=== PATIENT | female | born 1985 | race Caucasian/White ===

== ENCOUNTER → 2019-05-04 13:08 | Outpatient (CLI) | payer OTHER, SELFPAY ==
--- NOTE | ~2019-05-04 | US_ITS ---
EXAMINATION:US venous doppler LE RT INDICATION:Right calf pain TECHNIQUE: Multiple grayscale, color flow and Doppler images of the right lower extremity deep venous systems were obtained and reviewed. COMPARISON:No prior studies for comparison. FINDINGS: The common femoral, superficial femoral and popliteal veins demonstrate normal respiratory variation, augmentation and compressibility. Color flow is also seen within the posterior tibial, pe roneal, greater saphenous and profunda veins. IMPRESSION: 1: No lower extremity deep venous thrombosis. Reviewed, dictated and finalized at location B. [employer]
== END ==
PROVIDERS: PCP Family Medicine; Visit Provider Family Medicine
DX: M79.661 Pain in right lower leg (principal)
CPT/HCPCS: 93971

== ENCOUNTER 2019-05-10 15:12 | Outpatient (CLI) | payer OTHER, SELFPAY ==
--- NOTE | ~2019-05-10 | CT_ITS ---
EXAMINATION: CT abdomen pelvis w con DATE: 05/10/2019 16:01 INDICATION: Abnormal iron profile. TECHNIQUE: Computed tomography (CT) of the abdomen and pelvis was performed with 100 cc Omnipaque 350 intravenous contrast. The dose-length product was 241.60 mGy-cm. Automated exposure control and iter ative reconstruction technique were employed. COMPARISON: None. FINDINGS: Lung bases are unremarkable. There are breast implants. Heart size is normal. Small subcentimeter hypodensities of the liver, most likely benign cysts or hemangiomas. The spleen c ontains calcified granulomas. The pancreas, adrenal glands and kidneys are unremarkable. Bowel patter n is nonobstructive. There is a 1.8 cm corpus luteal cyst of the left ovary. Small amount of free flu id in the pelvis. No free air. Nonobstructive bowel gas pattern. Uterus is unremarkable. No significa nt bone or joint abnormality. IMPRESSION: 1. No acute abdominal abnormality. 2: Left ovarian cyst measuring 1.8 cm. No significant vascular abnormality. No lymphadenopathy. Reviewed, dictated and finalized at location A.
== END 2019-05-10 15:13 | disposition home or self-care (01) ==
PROVIDERS: PCP Nurse Practitioner Adult Health; Visit Provider Nurse Practitioner Adult Health
DX: R79.0 Abnormal level of blood mineral (principal); N83.202 Unspecified ovarian cyst, left side
CPT/HCPCS: 74177; Q9967

== ENCOUNTER 2019-07-12 15:52 | Outpatient (CLI) | payer OTHER, SELFPAY ==
[2019-07-12 16:14] LABS: Basophils Percent Auto 0.5 % (0.2-1.2); Eosinophils Absolute Auto 0.2 K/mm3 (0-0.3); Eosinophils Percent Auto 2.4 % (0-4.4); Hematocrit 39.6 % (37.0-47.0); Hemoglobin 12.7 g/dL (12.0-15.0); Immature Granulocyte Absolute 0.02 K/mm3 (0.00-0.031); Immature Granulocyte Percent A 0.3 % (0-0.5); Lymphocytes Absolute Auto 1.23 K/mm3 (0.9-3.2); Lymphocytes Percent Auto 18.5 % (18.3-44.2); Mean Corpuscular HGB Conc 32.1 g/dl (32-36); Mean Corpuscular Hemoglobin 30.7 pg (26-34); Mean Corpuscular Volume 95.7 fl (80-100); Mean Platelet Volume 11.1 fl (7.4-10.4); Monocytes Absolute Auto 0.6 K/mm3 (0.1-0.6); Monocytes Percent Auto 8.3 % (2.6-8.5); Neutrophils Absolute Auto 4.7 K/mm3 (1.3-6.7); Platelet Count Result 152 k/mm3 (150-375); Red Blood Count 4.14 M/mm3 (4.2-5.4); Red Cell Distribution Width 13.2 % (11.5-14.5); White Blood Count 6.6 K/mm3 (4.5-10.0)
[2019-07-12 16:54] LABS: Iron 112 ug/dL (37-170)
[2019-07-12 16:57] LABS: Alanine Aminotransferase 27 U/L (4-35); Albumin Level 4.8 g/dL (3.5-5.1); Alkaline Phosphatase 39 U/L (38-126); Aspartate Amino Transferase 34 U/L (14-36); Bilirubin,Total 0.8 mg/dL (0.2-1.3); Blood Urea Nitrogen 17 mg/dL (7-17); Calcium 9.7 mg/dL (8.4-10.2); Carbon Dioxide 29 mmol/L (22-30); Chloride 102 mmol/L (98-107); Estimated Glomerular Filt Rate > 60; Glucose 83 mg/dL (65-105); Potassium 4.4 mmol/L (3.4-5.0); Sodium 135 mmol/L (137-145)
[2019-07-12 17:04] LABS: Percent Iron Saturation 46 % (20-50)
== END 2019-07-12 15:53 | disposition home or self-care (01) ==
PROVIDERS: PCP Nurse Practitioner Adult Health; Visit Provider Internal Medicine Hematology & Oncology
DX: E83.19 Other disorders of iron metabolism (principal)
CPT/HCPCS: 36415; 80053; 81256; 82728; 83540; 83550; 85025

== ENCOUNTER 2021-03-16 11:19 | Outpatient (CLI) | payer OTHER, SELFPAY ==
[2021-03-16 12:46] LABS: HIV 1/2 Ab P24 Ag Result Negative (Negative)
[2021-03-16 13:42] LABS: Hepatitis B Surface Antigen Negative (Negative)
[2021-03-17 07:28] LABS: Rapid Plasma Reagin Non-Reactive (NonReactive)
[2021-03-20 12:09] LABS: HSV 1 IgM Screen Positive (Negative); HSV 2 IgM Screen Negative (Negative)
[2021-03-20 12:41] LABS: HSV 1 IgM Titer 1:20 (<1:20)
== END 2021-03-16 11:20 | disposition home or self-care (01) ==
LOC: ANHLAB 11:22
PROVIDERS: PCP Nurse Practitioner Adult Health; Visit Provider Obstetrics & Gynecology
DX: Z20.2 Contact with and (suspected) exposure to infections with a predominantly sexual mode of transmission (principal)
CPT/HCPCS: 36415; 86592; 86695; 86696; 86703; 87340; G0432

== ENCOUNTER 2022-04-09 08:46 | Outpatient (CLI) | payer OTHER, SELFPAY ==
[2022-04-09 11:42] LABS: Kit Draw Collected
== END 2022-04-09 08:47 | disposition home or self-care (01) ==
LOC: ANHGOSHLAB 08:48
PROVIDERS: PCP Internal Medicine; Visit Provider Clinical Nurse Specialist
DX: D50.9 Iron deficiency anemia, unspecified (principal); E28.2 Polycystic ovarian syndrome; E55.9 Vitamin D deficiency, unspecified; R79.89 Other specified abnormal findings of blood chemistry; Z13.220 Encounter for screening for lipoid disorders; Z13.228 Encounter for screening for other metabolic disorders
CPT/HCPCS: 36415

== ENCOUNTER 2022-04-30 09:34 | Outpatient (CLI) | payer OTHER, SELFPAY ==
[2022-04-30 12:02] LABS: Kit Draw Collected
== END 2022-04-30 09:35 | disposition home or self-care (01) ==
LOC: ANHGOSHLAB 09:36
PROVIDERS: PCP Internal Medicine; Visit Provider Clinical Nurse Specialist
DX: D69.6 Thrombocytopenia, unspecified (principal); R79.0 Abnormal level of blood mineral
CPT/HCPCS: 36415

== ENCOUNTER 2022-07-09 01:01 | Day surgery (SDC) | payer OTHER, SELFPAY ==
[2022-07-07 08:46] VITALS: BMI 20.3
--- NOTE | 2022-07-07 08:54 | PC.NURSE ---
Report to the Outpatient Waiting Room, entrance under the green pavilion located off [facility], at time 1000 on date 07/09/22. Planned Procedure Time: 1200. Time changes happen often and if your time is changed the preop area will call you the afternoon before. - You and your visitor will be asked to self-screen and do not enter if you have any COVID symptoms. - A mask is optional within the hospital at this time. Patients may have clear liquids (water, carbonated beverages, clear teas, apple juice) until 3 hours prior to surgery with a maximum of 20 ounces. - No food from midnight until time of surgery Take the following medications with a SIP of water the morning of surgery: VALACYCLOVIR IF NEEDED DO NOT STOP ANY OF YOUR OTHER PRESCRIPTION MEDICATIONS PRIOR TO SURGERY EXCEPT THE FOLLOWING Medications to discontinue per physician: VITAMINS/SUPPLEMENTS Date to take last dose: NO MORE UNTIL AFTER SURGERY Please no make-up, nail greenlandic, hairspray, perfume, deodorant, or body powder the day of surgery. No jewelry (including any body piercings) or valuables the day of surgery, leave them at home. Please take a shower or bath the night before, or the morning of, surgery with an antibacterial soap. Wear comfortable, loose fitting clothing. - Jewelry must be removed prior to entering the operating room. Rings and piercings that are not removed may be cut off. - The hospital will not accept responsibility for valuables. - Please leave all valuables, including medications, at home the day of surgery. If you are going home after surgery, a licensed courier driver must drive you home. - NO public transportation without another adult if you receive anesthesia. - We recommend that an adult stay with you for 24 hours following discharge. - We also recommend that you do not drive, make important decision, drink alcoholic beverages, or take any drugs that were not prescribed by your health care provider for at least 24 hours after your discharge time. Follow any additional instructions given to you from your surgeon. If you or anyone in your household have experienced Covid symptoms in the past week, please notify your surgeon or the nurse liaison at the phone number below for possible testing. Telephone instructions given to PT - DENIA MAZARIEGOS and asked if any additional questions and then verbalized understanding. Patient advised to call surgeon office or pre surgery nurse liaison [phone] if any additional questions.
--- NOTE | 2022-07-09 08:02 | PM.IMHP ---
H&P: HPI History of Present Illness Date/Time: 07/09/22 08:02 Chief Complaint: abnormal uterine bleeding Narrative: 36-year-old female who presents for hysteroscopy, D&C, endometrial ablation.? Patient complained of abnormal uterine bleeding.? Patient has tried hormonal contraceptives in the past without improvement in symptoms.? Patient continues to have bothersome bleeding.? Patient states she has had on and off menstrual like bleeding since June 09.? Patient had a pelvic ultrasound which was negative for structural causes of bleeding.? Patient would like to proceed with endometrial ablation.? Review of Systems Cardiovascular: Cardiovascular: Denies chest pain, Denies leg edema, Denies palpitations, Denies dyspnea and Denies dyspnea on exertion Respiratory: Respiratory: Denies cough, Denies dyspnea and Denies dyspnea on exertion Gastrointestinal: Gastrointestinal: Denies abdominal pain, Denies constipation, Denies diarrhea, Denies nausea and Denies vomiting Genitourinary: Genitourinary: Denies hematuria, Denies urinary frequency, Denies dysuria, Denies pelvic pain, Denies urinary incontinence and Denies vaginal discharge Neurologic: Reports system reviewed and no additional complaints, except as documented Psychiatric: Psychiatric: Reports no additional psychiatric complaints Endocrine: Endocrine: Denies palpitations PMFSH Past Medical History Medical History Breast implant status 2020, illness HSV-1 (herpes simplex virus 1) infection PCOS (polycystic ovarian syndrome) Surgical History Surgical History H/O lateral meniscus repair of right knee History of breast augmentation 04/08/17 History of breast surgery 07/02/20, breast implant removal Status post creation of urethral sling by suprapubic approach Family History Family History Grandparent Breast cancer Social History Social History Smoking status: Never smoker Alcohol intake: current Alcohol use details: 2 BOTTLES OF WINE/MONTH Substance use: never Substance use type: does not use Lack of Transportation: No Lack of Food: Never True Current Housing: I Have Housing Concerned About Future Housing: No Difficulty Paying Gas/Electric Bills: No Difficulty Paying for Meds: No Currently Unemployed: No Education: Bachelor's Degree Difficulty w/ Childcare or Family Care: No Living arrangements: with family Additional living arrangements comments: [employer] Occupation/Education: occupation Additional occupation/education comments: RN Gender identity (if verbalized by the patient): Female Sexual Orientation (if Verbalized by the Patient): Lesbian, Shearer, or Homosexual Spiritual care concerns: No Meds Home Medications and Allergies Home Medications Medication Instructions Recorded Confirmed Type multivit with 1 tablet PO DAILY 01/09/20 07/07/22 History pyuazrho-blev-CI-lutein 8 mg iron-400 mcg-300 mcg tablet (Centrum Silver Women) lactobacillus combination no.4 3 3,000 mmu cells PO DAILY 12/12/20 07/07/22 History billion cell capsule (Probiotic) albuterol sulfate 90 mcg/actuation 1 inh inhalation Q4H PRN shortness 04/08/22 07/07/22 Rx aerosol inhaler of breath or wheezing #8.5 grams valacyclovir 1 gram tablet 2,000 mg PO Q12H PRN cold sores 1 04/08/22 07/07/22 Rx day #4 tabs lysine 1,000 mg tablet 1,000 mg PO DAILY 07/07/22 07/07/22 History Allergies Allergy/AdvReac Type Severity Reaction Status Date / Time Sulfa (Sulfonamide Allergy Severe Anaphylaxis Verified 07/07/22 08:45 Antibiotics) Exam Const: General: no acute distress Eyes: EOM: EOMs intact bilaterally Neck: Neck: supple Thyroid: thyroid normal Chest: Breast/axilla inspection: no
--- NOTE | 2022-07-09 08:04 | WPDHPUPDATE1 ---
History and Physical Update Update Date/Time: 07/09/22 08:04 History and Physical has been reviewed, including an updated exam of the patient. There are NO changes in the patient's condition. Risks, benefits, and alternatives have been discussed and questions answered. Patient agrees to proceed with procedure.
[2022-07-09] MEDS: ACETAMINOPHEN 500 MG TABLET 1000 MG PO (10:09)
[2022-07-09] MEDS: LACTATED RINGERS 1,000 ML 30 ML IV CONT (10:30)
[2022-07-09 10:35] VITALS: BP 115/77; PULSE 62; RESP 16; TEMP 36.9; O2SAT 100
[2022-07-09 10:39] LABS: Hematocrit 38.5 % (37.0-47.0)
--- NOTE | 2022-07-09 10:44 | WPDANESEPPF ---
Anes - Initial Pre Proc Eval Procedure: Operation Date: 07/09/22 12:00 Proposed Procedures p Hysteroscopy Dilation and Curettage with Zo Endometrial Ablation - Brian Blanca MD Date/Time: 07/09/22 10:44 Surgeon: Brian Blanca MD Pre Op Diagnosis: Abnormal Uterine Bleeding Patient Data Age: 36 Gender: F Height: 1.7 m Weight: 60.8 kg Last Vital Signs Temp 36.9 C 07/09/22 10:35 Pulse 62 07/09/22 10:35 Resp 16 07/09/22 10:35 BP 115/77 07/09/22 10:35 Pulse Ox 100 07/09/22 10:35 O2 Del Method Room Air 07/09/22 10:35 Allergies Allergy/AdvReac Type Severity Reaction Status Date / Time Sulfa (Sulfonamide Allergy Severe Anaphylaxis Verified 07/09/22 10:08 Antibiotics) Home Medications Medication Instructions Recorded Confirmed Type multivit with 1 tablet PO DAILY 01/09/20 07/07/22 History vzkjnqqh-ttpq-MD-lutein 8 mg iron-400 mcg-300 mcg tablet (Centrum Silver Women) lactobacillus combination no.4 3 3,000 mmu cells PO DAILY 12/12/20 07/07/22 History billion cell capsule (Probiotic) albuterol sulfate 90 mcg/actuation 1 inh inhalation Q4H PRN shortness 04/08/22 07/07/22 Rx aerosol inhaler of breath or wheezing #8.5 grams valacyclovir 1 gram tablet 2,000 mg PO Q12H PRN cold sores 1 04/08/22 07/07/22 Rx day #4 tabs lysine 1,000 mg tablet 1,000 mg PO DAILY 07/07/22 07/07/22 History Laboratory Tests 07/09/22 10:32 Hgb Pending Hct Pending Patient hx anesthesia problems: none Family hx anesthesia problems: none Results Review: All pre-operative results and documents have been reviewed as part of the pre-operative evaluation. [facility] Past Medical History Medical History Breast implant status 2020, illness HSV-1 (herpes simplex virus 1) infection PCOS (polycystic ovarian syndrome) Surgical History Surgical History H/O lateral meniscus repair of right knee History of breast augmentation 04/08/17 History of breast surgery 07/02/20, breast implant removal Status post creation of urethral sling by suprapubic approach Family History Family History Grandparent Breast cancer Social History Social History Smoking status: Never smoker Alcohol intake: current Alcohol use details: 2 BOTTLES OF WINE/MONTH Substance use: never Substance use type: does not use Lack of Transportation: No Lack of Food: Never True Current Housing: I Have Housing Concerned About Future Housing: No Difficulty Paying Gas/Electric Bills: No Difficulty Paying for Meds: No Currently Unemployed: No Education: Bachelor's Degree Difficulty w/ Childcare or Family Care: No Living arrangements: with family Additional living arrangements comments: [employer] Occupation/Education: occupation Additional occupation/education comments: RN Gender identity (if verbalized by the patient): Female Sexual Orientation (if Verbalized by the Patient): Lesbian, Shearer, or Homosexual Spiritual care concerns: No Anes - Eval Final PreProcedure Day of Procedure 07/09/22 10:44 Patient weight: normal Heart: regular rate and rhythm Lungs: clear to auscultation Airway: Mallampati scale class II Neurological: alert and oriented Last oral intake: >/= 8 hours ASA classification: II Emergent: no Anesthetic plan: proceed Anesthesia type and monitoring: general GIVS and standard monitoring Results Review: All pre-operative results and documents have been reviewed as part of the pre-operative evaluation. Informed Consent: The patient's anesthetic plan and its attendant risks and benefits were discussed with the patient/family/POA. Questions were solicited and answers provided to the satisfaction of the pat
[2022-07-09] MEDS: SCOPOLAMINE 1.5 MG PATCH TRANSDERM (10:54)
[2022-07-09] MEDS: LIDOCAINE HCL 1% LOCAL INJ 20 ML VIAL 10 ML INFILTRATE (12:08)
[2022-07-09 12:16] VITALS: BP 103/87; PULSE 58; RESP 16; O2SAT 100
--- NOTE | 2022-07-09 12:18 | W.PM.PROC2 ---
Procedure Note - Detailed Date of Procedure 07/09/22 Pre-op Diagnosis Abnormal Uterine Bleeding Post-op Diagnosis Same Procedure Performed paracervical block hysteroscopy dilation & curettage endometrial ablation Surgeon Brian Blanca MD Anesthesia General Indications abnormal uterine bleeding Findings normal appearing intrauterine cavity. Normal tubal ostia bilaterally Description of Procedure Marley Montanez presents for hysteroscopy, D&C, endometrial ablation for AUB. She was counseled as to the indications, risks, benefits, and alternatives to surgery, with the risks including bleeding, infection, damage to surrounding organs, VTE, and complications of anesthesia. Her verbal and written consent was obtained. PROCEDURE: The patient was taken to the OR and general anesthesia induced. She was prepped and draped in Salvador stirrups with support of the back and bilateral lower extremities. I/O catheterization performed of the bladder. The above findings were noted. Infiltration with 1% lidocaine at the 3 and 9 o'clock cervical positions was performed. A single tooth tenaculum was placed on the anterior lip of the cervix. The uterus sounded to 8 cm. The cervix was dilated with sequential Linda dilators. Hysteroscopy, using a normal saline medium, was performed and showed the above findings. Sharp uterine curettage was then performed and tissue placed on Telfa. The Zo device was set to a depth of 5.5 cm. The device was inserted into the uterus and deployed. Good fit was reassured by the device indicator. The cervical balloon was insufflated to ensure a good seal. Uterine integrity test was performed by the Zo device and was successful. The device was then activated. The entire ablation procedure lasted 120 seconds. The cervical balloon was desufflated and the device was removed from the uterus. The hysteroscope was re-introduced to ensure adequate tissue ablation. The tenaculum was removed and hemostasis was observed. The patient tolerated the procedure well. Sponge, lap, and needle counts were correct. The patient was taken to the recovery room in stable condition. Estimated Blood Loss 10 Urine Output 150 Drains No Packing No Pathology Yes (endometrial curettings ) Complications No immediate complications Condition Stable Disposition PACU [facility] Billing Surgery - Charge Forward: Surgery Billing
[2022-07-09 12:45] VITALS: BP 112/74; PULSE 54; RESP 15
[2022-07-09] MEDS: oxyCODONE HCL (*CRX) 5 MG TAB IR PO (12:51)
[2022-07-09] MEDS: fentaNYL CITRATE INJ (*CRX) 100 MCG/2 ML VIAL 25 MCG IV PUSH (13:02)
[2022-07-09] MEDS: KETOROLAC 30 MG/ML VIAL (*BKC) IV PUSH (13:13)
[2022-07-09 13:15] VITALS: BP 105/61; PULSE 64; RESP 16
[2022-07-09 13:23] VITALS: BP 116/70; PULSE 66; RESP 15
== END 2022-07-09 13:30 | disposition home or self-care (01) ==
PROVIDERS: PCP Internal Medicine; Visit Provider Student in an Organized Health Care Education/Training Program
PROC: 0U5B8ZZ Destruction of Endometrium, Via Natural or Artificial Opening Endoscopic (ICD-10-PCS; CPT 58563; principal; 2022-07-09 12:00)
DX: N93.9 Abnormal uterine and vaginal bleeding, unspecified (principal); B00.9 Herpesviral infection, unspecified; E28.2 Polycystic ovarian syndrome; Z79.51 Long term (current) use of inhaled steroids
CPT/HCPCS: 58563; 36415; 85014; 85018; 88305; A9270; J1885; J2250; J2704; J3010; J7030; J7120

== ENCOUNTER 2023-07-22 08:40 | Outpatient (CLI) | payer OTHER, SELFPAY ==
[2023-07-22 13:23] LABS: Basophils Percent Auto 0.8 % (0.2-1.2); Eosinophils Absolute Auto 0.1 K/mm3 (0-0.3); Eosinophils Percent Auto 2.1 % (0-4.4); Hematocrit 40.8 % (37.0-47.0); Hemoglobin 13.5 g/dL (12.0-15.0); Immature Granulocyte Absolute 0.01 K/mm3 (0.00-0.031); Immature Granulocyte Percent A 0.3 % (0-0.5); Lymphocytes Absolute Auto 1.05 K/mm3 (0.9-3.2); Lymphocytes Percent Auto 28.1 % (18.3-44.2); Mean Corpuscular HGB Conc 33.1 g/dl (32-36); Mean Corpuscular Hemoglobin 32.2 pg (26-34); Mean Corpuscular Volume 97.4 fl (80-100); Monocytes Absolute Auto 0.4 K/mm3 (0.1-0.6); Monocytes Percent Auto 11.8 % (2.6-8.5); Neutrophils Absolute Auto 2.1 K/mm3 (1.3-6.7); Neutrophils Percent Auto 56.9 % (45.5-73.1); Platelet Count Result 147 k/mm3 (150-375); Red Blood Count 4.19 M/mm3 (4.2-5.4); Red Cell Distribution Width 12.8 % (11.5-14.5); White Blood Count 3.7 K/mm3 (4.5-10.0)
[2023-07-22 15:02] LABS: Alanine Aminotransferase 23 U/L (6-35); Albumin Level 4.4 g/dL (3.5-5.1); Alkaline Phosphatase 37 U/L (38-126); Anion Gap 4 mmol/L (4-12); Aspartate Amino Transferase 43 U/L (14-36); Bilirubin,Total 0.9 mg/dL (0.2-1.3); Blood Urea Nitrogen 15 mg/dL (7-17); Calcium 9.3 mg/dL (8.4-10.2); Carbon Dioxide 26 mmol/L (22-30); Chloride 106 mmol/L (98-107); Cholesterol 166 mg/dL (0-200); Estimated Glomerular Filt Rate > 60; Glucose 78 mg/dL (65-110); HDL Direct 83 mg/dL; Potassium 4.4 mmol/L (3.4-5.0); Sodium 136 mmol/L (137-145); Triglycerides 81 mg/dL (<150)
[2023-07-22 15:13] LABS: LDL Cholesterol Direct 65 mg/dL
[2023-07-22 16:02] LABS: Iron 181 ug/dL (37-170)
[2023-07-22 16:12] LABS: Percent Iron Saturation 76 % (20-50)
[2023-07-22 16:33] LABS: Vitamin D 25 Hydroxy 65.3 ng/mL
== END 2023-07-22 08:41 | disposition home or self-care (01) ==
LOC: ANHGOSHLAB 08:42
PROVIDERS: PCP Internal Medicine; Visit Provider Clinical Nurse Specialist
DX: R74.8 Abnormal levels of other serum enzymes (principal); D50.9 Iron deficiency anemia, unspecified; E55.9 Vitamin D deficiency, unspecified; Z13.220 Encounter for screening for lipoid disorders; Z13.228 Encounter for screening for other metabolic disorders
CPT/HCPCS: 36415; 80053; 80061; 82306; 82728; 83540; 83550; 84443; 85025

== ENCOUNTER 2023-09-13 01:50 | Day surgery (SDC) | payer OTHER, SELFPAY ==
[2023-09-07 13:42] VITALS: BMI 20.7
[2023-09-13 11:15] VITALS: BP 122/83; PULSE 74; RESP 18; O2SAT 100
[2023-09-13] MEDS: LACTATED RINGERS 1,000 ML 150 ML IV CONT (11:23)
--- NOTE | 2023-09-13 12:02 | WPDANESEPPF ---
Anes - Initial Pre Proc Eval Procedure: Operation Date: 09/13/23 12:30 Proposed Procedures p Colonoscopy - Kevin Morillo MD s [facility] Hemorrhoid Treatment - Kevin Morillo MD Date/Time: 09/13/23 12:02 Surgeon: Kevin Morillo MD Pre Op Diagnosis: Hemorrhage of anus/rectum Patient Data Age: 37 Gender: F Height: 1.7 m Weight: 61.4 kg Allergies Allergy/AdvReac Type Severity Reaction Status Date / Time Sulfa (Sulfonamide Allergy Severe Anaphylaxis Verified 09/13/23 11:18 Antibiotics) Home Medications Medication Instructions Recorded Confirmed Type jrrmtems-dcdd-unuj 8 mg-folic 400 1 tablet PO DAILY 01/09/20 09/07/23 History mcg-K 50 mcg-lutein 300 mcg tablet (Centrum Silver Women) lactobacillus combination no.4 3 3,000 mmu cells PO DAILY 12/12/20 09/07/23 History billion cell capsule (Probiotic) scopolamine base 1 mg over 3 days 1 patch transdermal Q72H PRN 08/02/22 09/07/23 Rx transdermal patch motion sickness #24 ea albuterol sulfate 90 mcg/actuation 1 inh inhalation Q4H PRN shortness 04/21/23 09/07/23 Rx aerosol inhaler of breath or wheezing #8.5 grams valacyclovir 1 gram tablet 2,000 mg PO Q12H PRN cold sores 1 07/19/23 09/07/23 Rx day #4 tabs valacyclovir 500 mg tablet 500 mg PO DAILY PRN Cold Sores 09/07/23 09/07/23 History Patient hx anesthesia problems: none Family hx anesthesia problems: none Results Review: All pre-operative results and documents have been reviewed as part of the pre-operative evaluation. [facility] Past Medical History Medical History Breast implant status 2020, illness HSV-1 (herpes simplex virus 1) infection PCOS (polycystic ovarian syndrome) Vaginitis Surgical History Surgical History H/O gynecological procedure hscope/D & C/ ablation H/O lateral meniscus repair of right knee History of breast augmentation 04/08/17 History of breast surgery 07/02/20, breast implant removal Status post creation of urethral sling by suprapubic approach Family History Family History Grandparent Breast cancer Social History Social History Smoking status: Never smoker Second hand tobacco smoke exposure: Yes Alcohol intake: current Alcohol use details: 2 BOTTLES OF WINE/MONTH Substance use: never Substance use type: does not use Do You Feel Safe in your Home?: Yes Lack of Transportation: No Lack of Food: Never True Current Housing: I Have Housing Concerned About Future Housing: No Difficulty Paying Gas/Electric Bills: No Difficulty Paying for Meds: No Currently Unemployed: No Education: Bachelor's Degree Difficulty w/ Childcare or Family Care: No Living arrangements: with family Additional living arrangements comments: [employer] Occupation/Education: occupation Additional occupation/education comments: RN Gender identity (if verbalized by the patient): Female Sexual Orientation (if Verbalized by the Patient): Lesbian, Shearer, or Homosexual Spiritual care concerns: No Anes - Eval Final PreProcedure Day of Procedure 09/13/23 12:02 Patient weight: normal Heart: regular rate and rhythm Lungs: clear to auscultation Airway: Mallampati scale class II Neurological: alert and oriented Last oral intake: >/= 8 hours ASA classification: I Emergent: no Anesthetic plan: proceed Anesthesia type and monitoring: general GIVS and standard monitoring Results Review: All pre-operative results and documents have been reviewed as part of the pre-operative evaluation. Informed Consent: The patient's anesthetic plan and its attendant risks and benefits were discussed with the patient/family/POA. Questions were solicited and answer
--- NOTE | 2023-09-13 12:11 | PM.HPGS ---
History of Present Illness History of Present Illness Consent: Risks, benefits, and alternatives have been discussed and questions answered. Patient agrees to proceed with procedure. Chief complaint: Hemorrhage of anus/rectum Narrative: Marley Montanez is a 37 year old female with anal discharge and blood in stool, never had colonoscopy Review of Systems Review of Systems: All systems reviewed & are unremarkable except as noted in HPI and below PMFSH Past Medical History Medical History Breast implant status 2020, illness HSV-1 (herpes simplex virus 1) infection PCOS (polycystic ovarian syndrome) Vaginitis Surgical History Surgical History H/O gynecological procedure hscope/D & C/ ablation H/O lateral meniscus repair of right knee History of breast augmentation 04/08/17 History of breast surgery 07/02/20, breast implant removal Status post creation of urethral sling by suprapubic approach Family History Family History Grandparent Breast cancer Social History Social History Smoking status: Never smoker Second hand tobacco smoke exposure: Yes Alcohol intake: current Alcohol use details: 2 BOTTLES OF WINE/MONTH Substance use: never Substance use type: does not use Do You Feel Safe in your Home?: Yes Lack of Transportation: No Lack of Food: Never True Current Housing: I Have Housing Concerned About Future Housing: No Difficulty Paying Gas/Electric Bills: No Difficulty Paying for Meds: No Currently Unemployed: No Education: Bachelor's Degree Difficulty w/ Childcare or Family Care: No Living arrangements: with family Additional living arrangements comments: [employer] Occupation/Education: occupation Additional occupation/education comments: RN Gender identity (if verbalized by the patient): Female Sexual Orientation (if Verbalized by the Patient): Lesbian, Shearer, or Homosexual Spiritual care concerns: No Meds Home Medications and Allergies Home Medications Medication Instructions Recorded Confirmed Type htyurdyv-debq-ntvf 8 mg-folic 400 1 tablet PO DAILY 01/09/20 09/07/23 History mcg-K 50 mcg-lutein 300 mcg tablet (Centrum Silver Women) lactobacillus combination no.4 3 3,000 mmu cells PO DAILY 12/12/20 09/07/23 History billion cell capsule (Probiotic) scopolamine base 1 mg over 3 days 1 patch transdermal Q72H PRN 08/02/22 09/07/23 Rx transdermal patch motion sickness #24 ea albuterol sulfate 90 mcg/actuation 1 inh inhalation Q4H PRN shortness 04/21/23 09/07/23 Rx aerosol inhaler of breath or wheezing #8.5 grams valacyclovir 1 gram tablet 2,000 mg PO Q12H PRN cold sores 1 07/19/23 09/07/23 Rx day #4 tabs valacyclovir 500 mg tablet 500 mg PO DAILY PRN Cold Sores 09/07/23 09/07/23 History Allergies Allergy/AdvReac Type Severity Reaction Status Date / Time Sulfa (Sulfonamide Allergy Severe Anaphylaxis Verified 09/13/23 11:18 Antibiotics) Exam Const: General: comfortable and no acute distress HENMT: Face/Nose/Sinus: Normal nares present Eyes: General: appearance normal, both eyes and all related structures Neck: Neck: no JVD Resp: Auscultation: clear to auscultation bilaterally Cardio: Rate: regular rate Rhythm: regular rhythm GI: Inspection: non-distended GI Palp: Yes Soft to palpation Skin: General skin exam: normal color Neuro: General: gait normal Speech: normal speech Extrem: General: normal to inspection Psych: Mental Status: mental status grossly normal Assessment and Plan Assessment and plan (1) Bright red rectal bleeding: Code(s): K62.5 - Hemorrhage of anus and rectum Status: Acute Assessment and Plan: colonoscopy (2)
--- NOTE | 2023-09-13 12:25 | SUR.OPER ---
COLONSCOPY COMPLETED AT 1224,IRC STARTED AT 1225 COMPLETED AT 1226
--- NOTE | 2023-09-13 12:29 | W.PM.PROC2 ---
Procedure Note - Detailed Date of Procedure 09/13/23 Pre-op Diagnosis Hemorrhage of anus/rectum Post-op Diagnosis Same Procedure Performed irc of internal hemorrhoids Surgeon Kevin Morillo MD Anesthesia MAC (also had colonoscopy) Indications hemorrhoids Findings grade ii internal hemorrhoids Description of Procedure using anoscopy noted small size internal hemorrhoids, no fissure, no bleeding. Then advanced IRC probe and hemorrhoid treated for 1.5 second x5
[2023-09-13 12:30] VITALS: BP 115/74; PULSE 60; RESP 20; O2SAT 100
[2023-09-13 12:40] VITALS: BP 136/41; PULSE 64; RESP 20; O2SAT 100
[2023-09-13 12:50] VITALS: BP 117/76; PULSE 54; RESP 20; O2SAT 100
== END 2023-09-13 12:57 | disposition home or self-care (01) ==
PROVIDERS: PCP Internal Medicine; Referring Provider Clinical Nurse Specialist; Visit Provider Internal Medicine Gastroenterology
PROC: 0DJD8ZZ Inspection of Lower Intestinal Tract, Via Natural or Artificial Opening Endoscopic (ICD-10-PCS; CPT 45378; principal; 2023-09-13 12:30)
PROC: (CPT 46930; 2023-09-13 12:30)
DX: D12.3 Benign neoplasm of transverse colon (principal); K64.8 Other hemorrhoids; B00.9 Herpesviral infection, unspecified; E28.2 Polycystic ovarian syndrome; Z79.51 Long term (current) use of inhaled steroids
CPT/HCPCS: 45385; 88305; J2405; J2704; J7120

== ENCOUNTER 2023-09-30 13:47 | Outpatient (CLI) | payer OTHER, SELFPAY ==
[2023-09-30 18:24] LABS: Basophils Percent Auto 0.6 % (0.2-1.2); Eosinophils Absolute Auto 0.1 K/mm3 (0-0.3); Eosinophils Percent Auto 1.1 % (0-4.4); Hematocrit 41.6 % (37.0-47.0); Hemoglobin 13.9 g/dL (12.0-15.0); Immature Granulocyte Absolute 0.01 K/mm3 (0.00-0.031); Immature Granulocyte Percent A 0.2 % (0-0.5); Lymphocytes Absolute Auto 1.04 K/mm3 (0.9-3.2); Mean Corpuscular HGB Conc 33.4 g/dl (32-36); Mean Corpuscular Hemoglobin 32.7 pg (26-34); Mean Corpuscular Volume 97.9 fl (80-100); Mean Platelet Volume 11.6 fl (7.4-10.4); Monocytes Absolute Auto 0.4 K/mm3 (0.1-0.6); Monocytes Percent Auto 8.9 % (2.6-8.5); Neutrophils Absolute Auto 3.2 K/mm3 (1.3-6.7); Neutrophils Percent Auto 67.2 % (45.5-73.1); Platelet Count Result 179 k/mm3 (150-375); Red Blood Count 4.25 M/mm3 (4.2-5.4); Red Cell Distribution Width 12.3 % (11.5-14.5); White Blood Count 4.7 K/mm3 (4.5-10.0)
[2023-09-30 18:35] LABS: Iron 135 ug/dL (37-170)
[2023-09-30 18:44] LABS: Percent Iron Saturation 53 % (20-50)
== END 2023-09-30 13:48 | disposition home or self-care (01) ==
LOC: ANHGOSHLAB 13:48
PROVIDERS: PCP Internal Medicine; Visit Provider Clinical Nurse Specialist
DX: R74.8 Abnormal levels of other serum enzymes (principal); D50.8 Other iron deficiency anemias
CPT/HCPCS: 36415; 82728; 83540; 83550; 85025

== ENCOUNTER 2024-07-30 13:18 | Outpatient (CLI) | payer OTHER, SELFPAY ==
--- OUTSIDE RECORDS SUMMARY | 2024-07-30 13:30 | XMS_ITS | Clinical Summary ---
Author Organization [facility] Address [address] [place] [address] Care Team Providers Care Mass Communications Professor Name Role Phone Feng Warren MD Primary Care Provider [phone] Source Comments [facility],non-owned Affiliates and Associated Physician Practices is amultiple site organization consisting of ambulatory clinics and hospital sitesin [place], [place] and [place]. This disclosure is being madepursuant to the Care Everywhere program and may not contain all information available regarding this patient. Last updated 17.[facility] Allergies Active Allergy Reactions Criticality Noted Date Comments Sulfa Drugs Anaphylaxis High 12/16/2016 Medications * Be aware that medications may not be up to date on this document. Alwaysverify current medications with the patient. fluticasone propionate (FLONASE) 50 MCG/ACT nasal sprayIndications :Acute sinusitis, recurrence not specified, unspecified location [facility] 2 sprays into each nostril once daily 1 bottles 8 Active Additional Information Patient not taking.Reported on 10/17/2018 Multiple Vitamins-Mineral s (MULTIVITAMIN ADULT PO) Active albuterol HFA (PROVENTIL;BUDDY JOJO;PROAIR) 108 (90 Base) MCG/ACT inhalerIndicatio ns:Asthma, unspecified asthma severity, unspecified whether complicated, unspecified whether persistent (HCC) Inhale 2 puffs by mouth every 6 hours as needed 1 Inhaler 9 Active benzonatate (TESSALON) 100 MG capsuleIndicatio ns:Cough Take 1 capsule by mouth 3 times daily as needed for Cough 30 capsule 9 Active Active Problems No known active problems Social History Tobacco Use Types Packs/Day Years Used Date Smoking Tobacco: Never Smokeless Tobacco: Never Alcohol Use Standard Drinks/Week Comments Not Asked 0 (1 standard drink = 0.6 oz pur e alcohol) Comments No Sex and Gender Information Value Date Recorded Sex Assigned at Not on file Legal Sex Female 8:41 AM CDT Gender Identity Not on file Sexual Orientation Not on file Last Filed Vital Signs Vital Sign Reading Time Taken Comments Blood Pressure 112/72 10/17/2018 9:44 AM CDT Pulse 75 10/17/2018 9:44 AM CDT Temperature 36.8 C (98.3 F) 10/17/2018 9:44 AM CDT Respiratory Rate 20 10/17/2018 9:44 AM CDT Oxygen Saturation 98% 10/17/2018 9:44 AM CDT Inhaled Oxygen Concentration - - Weight 63.5 kg (140 lb) 10/17/2018 9:44 AM CDT Height 170.2 cm (5' 7) 10/17/2018 9:44 AM CDT Body Mass Index 21.93 10/17/2018 9:44 AM CDT Plan of Treatment Health Maintenance Due Date Last Done Comments LIPID TESTING 1983 MAMMOGRAM 1983 PAP SMEAR 1983 HIV SCREENING 10/09/1998 HEPATITIS C SCREENING 10/05/2001 DTAP/TDAP/TD VACCINES (1 - Tdap) 10/09/2002 HEPATITIS B VACCINE (1 of 3 - 19+ 3-dose series) 10/09/2002 COVID-19 VACCINE (2023-2 5 season) 2023 DEPRESSION SCREENING 02/29/2024 INFLUENZA VACCINE (Season Ended) 2024 ZOSTER VACCINE (1 of 2) 10/09/2033 HIB VACCINE Aged Out No longer eligi ble based on patient's age to complete this topic HPV VACCINE Aged Out No longer eligi ble based on patient's age to complete this topic MENINGOCOCCAL (Group B) VACC INE SHARED DECISION-MAKING Aged Out No longer eligibl e based on patient's age to complete this topic MENINGOCOCCAL GROUPS A/C/Y/W VACCINE Aged Out No longer eligible b ased on patient's age to complete this topic PNEUMOCOCCAL VACCINE Aged Out No long er eligible based on patient's age to complete this topic Insurance [facility] Member Subscriber Plan / Payer (Ef fective 2017-Present) Name:Marley Mazariegos R Relation to Subscriber:Self Name:Marley Mazariegos R Payer ID:[id number] (NAIC) Type:HMO Address: [place] [id number] * Guarantor: MARLEY MAZARIEGOS Account Type Relation to Patient Date of Phone Billing Address Personal/Family [address] SELF PAY NO INSURANCE Member Subscriber Plan / Payer (Ef fective for All Dates) Name:Fred Mazariegosa R Member ID:Not on file Relation to Subscriber:Not on file Name:MARLEY MAZARIEGOS Subscriber ID:Not on file Address: [address] Payer ID:Not on file Group ID:Not on file Type:Self Pay Address: [facility] * Guarantor: MARLEY MAZARIEGOS Account Type Relation to Patient Date of Phone Billing Address Personal/Family [address] [place] [id number] SELF PAY NO INSURANCE Member Subscriber Plan / Payer (Ef fective for All Dates) Name:Fred Mazariegosa R Member ID:Not on file Relation to Subscriber:Not on file Name:MARLEY MAZARIEGOS Subscriber ID:Not on file Address: [address] [place] [address] Payer ID:Not on file Group ID:Not on file Type:Self Pay Address: [facility] Member Subscriber Plan / Payer (Ef fective 2023-Present) Name:Marley Mazariegos R Relation to Subscriber:Self Name:Marley Mazariegos R Payer ID:[id number] (NAIC) Type:[employer] Address: [place] [phone] * Guarantor: MARLEY MAZARIEGOS Account Type Relation to Patient Date of Phone Billing Address Personal/Family [address] [place] [address] SELF PAY NO INSURANCE Member Subscriber Plan / Payer (Ef fective for All Dates) Name:Marley Mazariegos R Member ID:Not on file Relation to Subscriber:Not on file Name:MARLEY MAZARIEGOS Subscriber ID:Not on file Address: [address] [place] [address] Payer ID:Not on file Group ID:Not on file Type:Self Pay Address: [facility] Member Subscriber Plan / Payer (Ef fective 2023-Present) Name:Marley Mazariegos R Relation to Subscriber:Self Name:Marley Mazariegos R Payer ID:[id number] (NAIC) Type:HMO Address: [place] [id number] [place] [id number] Care Teams Mass Communications Professor Relationship Specialty Start Date End Date Feng Warren MD [address] [place] [address] PCP - General Family Medicine 12/16/16
[2024-07-30 14:23] LABS: Basophils Percent Auto 0.7 % (0.2-1.2); Eosinophils Absolute Auto 0.2 K/mm3 (0-0.3); Eosinophils Percent Auto 2.5 % (0-4.4); Hematocrit 41.2 % (37.0-47.0); Hemoglobin 13.7 g/dL (12.0-15.0); Immature Granulocyte Absolute 0.02 K/mm3 (0.00-0.031); Immature Granulocyte Percent A 0.3 % (0-0.5); Mean Corpuscular HGB Conc 33.3 g/dl (32-36); Mean Corpuscular Hemoglobin 31.6 pg (26-34); Mean Corpuscular Volume 94.9 fl (80-100); Mean Platelet Volume 11.7 fl (7.4-10.4); Monocytes Absolute Auto 0.5 K/mm3 (0.1-0.6); Monocytes Percent Auto 8.5 % (2.6-8.5); Platelet Count Result 163 k/mm3 (150-375); Red Blood Count 4.34 M/mm3 (4.2-5.4); Red Cell Distribution Width 11.7 % (11.5-14.5); White Blood Count 6.1 K/mm3 (4.5-10.0)
[2024-07-30 15:29] LABS: Alanine Aminotransferase 24 U/L (6-35); Albumin Level 4.5 g/dL (3.5-5.1); Alkaline Phosphatase 34 U/L (38-126); Anion Gap 6 mmol/L (4-12); Aspartate Amino Transferase 33 U/L (14-36); Bilirubin,Total 0.7 mg/dL (0.2-1.3); Blood Urea Nitrogen 16 mg/dL (7-17); Calcium 9.3 mg/dL (8.4-10.2); Carbon Dioxide 26 mmol/L (22-30); Chloride 106 mmol/L (98-107); Cholesterol 179 mg/dL (0-200); Estimated Glomerular Filt Rate > 60; Glucose 81 mg/dL (65-110); HDL Direct 91 mg/dL; Potassium 4.3 mmol/L (3.4-5.0); Sodium 138 mmol/L (137-145); Triglycerides 81 mg/dL (<150)
[2024-07-30 15:40] LABS: LDL Cholesterol Direct 62 mg/dL
[2024-07-30 16:27] LABS: Thyroid Stimulating Hormone 0.294 uIU/mL (0.465-4.680)
== END 2024-07-30 13:19 | disposition home or self-care (01) ==
LOC: ANHGOSHLAB 13:19
PROVIDERS: PCP Internal Medicine; Visit Provider Student in an Organized Health Care Education/Training Program
DX: E28.2 Polycystic ovarian syndrome (principal); D50.8 Other iron deficiency anemias; Z13.29 Encounter for screening for other suspected endocrine disorder; Z13.0 Encounter for screening for diseases of the blood and blood-forming organs and certain disorders involving the immune mechanism; Z13.220 Encounter for screening for lipoid disorders
CPT/HCPCS: 36415; 80053; 80061; 84443; 85025

== ENCOUNTER 2024-09-08 12:28 | Outpatient (CLI) | payer OTHER, SELFPAY ==
--- OUTSIDE RECORDS SUMMARY | 2024-09-08 12:31 | XMS_ITS | Clinical Summary ---
Author Organization [facility] Address [address] [place] [address] Care Team Providers Care Irrigator Name Role Phone Feng Warren MD Primary Care Provider [phone] Source Comments [facility],non-owned Affiliates and Associated Physician Practices is amultiple site organization consisting of ambulatory clinics and hospital sitesin [place], [place], [place] and [place]. This disclosure is being madepursuant to the Care Everywhere program and may not contain all information available regarding this patient. Last updated 17.[facility] Allergies Active Allergy Reactions Criticality Noted Date Comments Sulfa Drugs Anaphylaxis High 12/16/2016 Medications * Be aware that medications may not be up to date on this document. Alwaysverify current medications with the patient. fluticasone propionate (FLONASE) 50 MCG/ACT nasal sprayIndications :Acute sinusitis, recurrence not specified, unspecified location [facility] 2 sprays into each nostril once daily [...] Done Comments LIPID TESTING 1983 MAMMOGRAM 1983 HIV SCREENING 10/09/1998 HEPATITIS C SCREENING 10/05/2001 DTAP/TDAP/TD VACCINES (1 - Tdap) 10/09/2002 HEPATITIS B VACCINE (1 of 3 - 19+ 3-dose series) 10/09/2002 PAP SMEAR 10/09/2004 HPV VACCINE (1 - 3-dose SCDM series) 10/09/2010 COVID-19 VACCINE ( - 2023-2 5 season) 2023 DEPRESSION SCREENING 02/29/2024 INFLUENZA VACCINE (#1) 2024 ZOSTER VACCINE (1 of 2) 10/09/2033 [...] patient's age to complete this topic Insurance [facility] Member Subscriber Plan / Payer (Ef fective 2017-Present) Name:Marley Mazariegos R Relation to Subscriber:Self Name:Marley Mazariegos R Payer ID:[id number] (NAIC) Type:HMO Address: [address] * Guarantor: MARLEY MAZARIEGOS Account Type Relation to Patient Date of Phone Billing Address Personal/Family [address] SELF PAY NO INSURANCE Member Subscriber Plan / Payer (Ef fective for All Dates) Name:Fred Mazariegosa R Member ID:Not on file Relation to Subscriber:Not on file Name:MARLEY MAZARIEGOS Subscriber ID:Not on file Address: [address] Payer ID:Not on file Group ID:Not on file Type:Self Pay Address: [facility] * Guarantor: MARLEY MAZARIEGOS Account Type Relation to Patient Date of Phone Billing Address Personal/Family [address] SELF PAY NO INSURANCE Member Subscriber Plan / Payer (Ef fective for All Dates) Name:Fred Mazariegosa R Member ID:Not on file Relation to Subscriber:Not on file Name:MARLEY MAZARIEGOS Subscriber ID:Not on file Address: [address] Payer ID:Not on file Group ID:Not on file Type:Self Pay Address: [facility] Member Subscriber Plan / Payer (Ef fective 2023-Present) Name:Marley Mazariegos R Relation to Subscriber:Self Name:Marley Mazariegos R Payer ID:[id number] (NAIC) Type:[employer] Address: [place] [id number] * Guarantor: MARLEY MAZARIEGOS Account Type Relation to Patient Date of Phone Billing Address Personal/Family [address] SELF PAY NO INSURANCE Member Subscriber Plan / Payer (Ef fective for All Dates) Name:Marley Mazariegos R Member ID:Not on file Relation to Subscriber:Not on file Name:MARLEY MAZARIEGOS Subscriber ID:Not on file Address: [address] [place] [address] Payer ID:Not on file Group ID:Not on file Type:Self Pay Address: [facility] Member Subscriber Plan / Payer (Ef fective 2023-Present) Name:Marley Mazariegos R Relation to Subscriber:Self Name:Marley Mazariegos R Payer ID:[id number] (NAIC) Type:HMO Address: [place] [id number] [place] [phone] Care Teams Irrigator Relationship Specialty Start Date End Date Feng Warren MD [address] [place] [address] PCP - General Family Medicine 12/16/16
[2024-09-08 12:49] LABS: Hematocrit 39.0 % (37.0-47.0); Hemoglobin 12.8 g/dL (12.0-15.0); Immature Granulocyte Percent A 0.2 % (0-0.5); Lymphocytes Absolute Auto 1.26 K/mm3 (0.9-3.2); Mean Corpuscular HGB Conc 32.8 g/dl (32-36); Mean Corpuscular Hemoglobin 31.4 pg (26-34); Mean Corpuscular Volume 95.6 fl (80-100); Nucleated Red Blood Cells Absolute Auto 0.000 K/mm3 (0.0-0.012); Nucleated Red Blood Cells Perc 0.0 % (0.0-0.2); Platelet Count Result 168 k/mm3 (150-375); Red Blood Count 4.08 M/mm3 (4.2-5.4); White Blood Count 4.0 K/mm3 (4.5-10.0)
== END 2024-09-08 12:29 | disposition home or self-care (01) ==
LOC: ANHLAB 12:30
PROVIDERS: PCP Internal Medicine; Visit Provider Surgery
DX: K64.2 Third degree hemorrhoids (principal)
CPT/HCPCS: 36415; 85025

== ENCOUNTER 2024-09-10 00:20 | Day surgery (SDC) | payer OTHER, SELFPAY ==
[2024-09-07 11:25] VITALS: BMI 20.5
--- NOTE | 2024-09-07 11:34 | PC.NURSE ---
Report to the Outpatient Waiting Room, entrance under the green pavilion located off [facility], at time _1100_ on date _[id number]_. Planned Procedure Time: _1pm_.? Time changes happen often and if your time is changed the preop area will call you the afternoon before. - You and your visitor will be asked to self-screen and do not enter if you have any COVID symptoms. Please call surgeon if you need to reschedule. - A mask is optional within the hospital at this time. Patients may have clear liquids (water, carbonated beverages, clear teas, apple juice) until 3 hours prior to surgery with a maximum of 20 ounces. - No food from midnight until time of surgery and no smoking, or chewing tobacco (or any form of nicotine). No chewing gum, candy or mints. Take only the following medications with a SIP of water on the morning of surgery: DO NOT STOP ANY OF YOUR OTHER PRESCRIPTION MEDICATIONS PRIOR TO SURGERY EXCEPT THE FOLLOWING Hold all vitamins and supplements for 3 days per anesthesiologist. Stop now. Medications to discontinue per physician Date to take last dose Please no make-up, nail indonesian, hairspray, perfume, deodorant, or body powder the day of surgery.? No jewelry (including any body piercings) or valuables the day of surgery, leave them at home.? Please take a shower or bath the night before, or the morning of, surgery with an antibacterial soap.? Wear comfortable, loose fitting clothing.? - Jewelry must be removed prior to entering the operating room.? Rings and piercings that are not removed may be cut off. - The hospital will not accept responsibility for valuables.? - Please leave all valuables, including medications, at home the day of surgery. If you are going home after surgery, a licensed transit mixer driver must drive you home.? - NO public transportation without another adult if you receive anesthesia. - We recommend that an adult stay with you for 24 hours following discharge. - We also recommend that you do not drive, make important decision, drink alcoholic beverages, or take any drugs that were not prescribed by your health care provider for at least 24 hours after your discharge time. Follow any additional instructions given to you from your surgeon. Telephone instructions given to __Thea__and asked if any additional questions and then verbalized understanding. Patient advised to call surgeon office or pre surgery nurse liaison [phone] if any additional questions.
--- NOTE | 2024-09-07 11:48 | PC.NURSE ---
Report to the Outpatient Waiting Room, entrance under the green pavilion located off [facility], at time _1100_ on date _[id number]_. Planned Procedure Time: _1pm_.? Time changes happen often and if your time is changed the preop area will call you the afternoon before. - You and your visitor will be asked to self-screen and do not enter if you have any COVID symptoms. Please call surgeon if you need to reschedule. - A mask is optional within the hospital at this time. - No food or drink from midnight until time of surgery and no smoking, or chewing tobacco (or any form of nicotine). No chewing gum, candy or mints. Take only the following medications with a SIP of water on the morning of surgery: ___None____ Follow bowel prep instructions given by Dr Peña. DO NOT STOP ANY OF YOUR OTHER PRESCRIPTION MEDICATIONS PRIOR TO SURGERY EXCEPT THE FOLLOWING Hold all vitamins and supplements for 3 days per anesthesiologist. Stop today. Medications to discontinue per physician Date to take last dose Please no make-up, nail tamazight, hairspray, perfume, deodorant, or body powder the day of surgery.? No jewelry (including any body piercings) or valuables the day of surgery, leave them at home.? Please take a shower or bath the night before, or the morning of, surgery with an antibacterial soap.? Wear comfortable, loose fitting clothing.? - Jewelry must be removed prior to entering the operating room.? Rings and piercings that are not removed may be cut off. - The hospital will not accept responsibility for valuables.? - Please leave all valuables, including medications, at home the day of surgery. If you are going home after surgery, a licensed road train driver must drive you home.? - NO public transportation without another adult if you receive anesthesia. - We recommend that an adult stay with you for 24 hours following discharge. - We also recommend that you do not drive, make important decision, drink alcoholic beverages, or take any drugs that were not prescribed by your health care provider for at least 24 hours after your discharge time. Follow any additional instructions given to you from your surgeon. Telephone instructions given to __thea__and asked if any additional questions and then verbalized understanding. Patient advised to call surgeon office or pre surgery nurse liaison [phone] if any additional questions.
[2024-09-10] VITALS (7 sets, daily range): BP systolic 105–131; BP diastolic 55–83; PULSE 55–77; RESP 10–15; TEMP 36.3–37; O2SAT 98–100; BMI 20.6
--- OUTSIDE RECORDS SUMMARY | 2024-09-10 00:37 | XMS_ITS | Clinical Summary ---
Author Organization [facility] Address [address] [place] [address] Care Team Providers Care Laundry Housekeeping Aide Name Role Phone Feng Warren MD Primary Care Provider [phone] Source Comments [facility],non-owned Affiliates and Associated Physician Practices is amultiple site organization consisting of ambulatory clinics and hospital sitesin [place], [place], [place] and [place]. This disclosure is being madepursuant to the Care Everywhere program and may not contain all information available regarding this patient. Last updated 17.[facility] Allergies Active Allergy Reactions Criticality Noted Date Comments Sulfa Drugs Anaphylaxis High 12/16/2016 Medications * Be aware that medications may not be up to date on this document. Alwaysverify current medications with the patient. fluticasone propionate (FLONASE) 50 MCG/ACT nasal sprayIndications :Acute sinusitis, recurrence not specified, unspecified location [place] 2 sprays into each nostril once daily [...] patient's age to complete this topic Insurance [facility] Member Subscriber Plan / Payer (Ef fective 2017-Present) Name:Marley Mazariegos R Relation to Subscriber:Self Name:Marley Mazariegos R Payer ID:[id number] (NAIC) Type:HMO Address: [address] * Guarantor: MARLEY MAZARIEGOS Account Type Relation to Patient Date of Phone Billing Address Personal/Family [address] SELF PAY NO INSURANCE Member Subscriber Plan / Payer (Ef fective for All Dates) Name:Fred Mazariegosa R Member ID:Not on file Relation to Subscriber:Not on file Name:MARLEY MAZARIEGOS Subscriber ID:Not on file Address: [address] Payer ID:Not on file Group ID:Not on file Type:Self Pay Address: [facility] * Guarantor: MARLEY MAZARIEGOS Account Type Relation to Patient Date of Phone Billing Address Personal/Family [address] SELF PAY NO INSURANCE Member Subscriber Plan / Payer (Ef fective for All Dates) Name:Fred Mazariegosa R Member ID:Not on file Relation to Subscriber:Not on file Name:MARLEY MAZARIEGOS Subscriber ID:Not on file Address: [address] Payer ID:Not on file Group ID:Not on file Type:Self Pay Address: [facility] Member Subscriber Plan / Payer (Ef fective 2023-Present) Name:Marley Mazariegos R Relation to Subscriber:Self Name:Marley Mazariegos R Payer ID:[id number] (NAIC) Type:[employer] Address: [place] [phone] * Guarantor: MARLEY MAZARIEGOS Account Type Relation to Patient Date of Phone Billing Address Personal/Family [address] SELF PAY NO INSURANCE Member Subscriber Plan / Payer (Ef fective for All Dates) Name:Marley Mazariegos R Member ID:Not on file Relation to Subscriber:Not on file Name:MARLEY MAZARIEGOS Subscriber ID:Not on file Address: [address] [place] [address] Payer ID:Not on file Group ID:Not on file Type:Self Pay Address: [facility] Member Subscriber Plan / Payer (Ef fective 2023-Present) Name:Marley Mazariegos R Relation to Subscriber:Self Name:Marley Mazariegos R Payer ID:[id number] (NAIC) Type:HMO Address: [place] [id number] [place] [phone] Care Teams Laundry Housekeeping Aide Relationship Specialty Start Date End Date Feng Warren MD [address] [place] [address] PCP - General Family Medicine 12/16/16
[2024-09-10] MEDS: LACTATED RINGERS 1,000 ML 30 ML IV CONT (11:35)
[2024-09-10] MEDS: ACETAMINOPHEN 500 MG TABLET 1000 MG PO (11:40)
[2024-09-10] MEDS: KETOROLAC 15 MG/ML VIAL (*BKC) IV PUSH (11:40)
[2024-09-10 11:56] LABS: BEDSIDEPREGUCG Negative (Negative)
--- NOTE | 2024-09-10 13:14 | WPDHPUPDATE1 ---
History and Physical Update Update Date/Time: 09/10/24 13:14 History and Physical has been reviewed, including an updated exam of the patient. There are NO changes in the patient's condition. Risks, benefits, and alternatives have been discussed and questions answered. Patient agrees to proceed with procedure.
--- NOTE | 2024-09-10 14:10 | P.PNAN_ITS ---
Anes - Initial Pre Proc Eval Procedure: Operation Date: 09/10/24 13:00 Proposed Procedures p Rectal Examination under Anesthesia, Rubberband Ligation Internal Hemorrhoids - Julio Peña MD Date/Time: 09/10/24 14:10 Surgeon: Julio Peña MD Pre Op Diagnosis: Prolapse Bleeding Int Hemorrhoids Patient Data Age: 38 Gender: F Height: 1.7 m Weight: 59.8 kg Last Vital Signs Temp 98.6 F 09/10/24 11:15 Pulse 77 09/10/24 11:15 Resp 14 09/10/24 11:15 BP 105/75 09/10/24 11:15 Pulse Ox 100 09/10/24 11:15 Allergies Allergy/AdvReac Type Severity Reaction Status Date / Time Sulfa (Sulfonamide Allergy Severe Anaphylaxis Verified 09/10/24 11:42 Antibiotics) Home Medications ?Medication ?Instructions ?Recorded ?Confirmed ?Type kbjokgpa-lizl-oapt 8 mg-folic 400 1 tablet PO DAILY 01/09/20 09/10/24 History mcg-K 50 mcg-lutein 300 mcg tablet (Centrum Silver Women) lactobacillus combination no.4 3 3,000 mmu cells PO DAILY 12/12/20 09/10/24 History billion cell capsule (Probiotic) albuterol sulfate 90 mcg/actuation 1 inh inhalation Q4H PRN shortness 04/21/23 09/07/24 Rx aerosol inhaler of breath or wheezing #8.5 grams valacyclovir 1 gram tablet 2,000 mg (2 x 1 gram) PO Q12H PRN 07/06/24 09/07/24 Rx cold sores 1 day #4 tabs Laboratory Tests 09/10/24 11:15 POC Urine HCG, Qual Negative (Negative) Patient hx anesthesia problems: post op nausea/vomiting Family hx anesthesia problems: none Results Review: All pre-operative results and documents have been reviewed as part of the pre- operative evaluation. [facility] Past Medical History Medical History HSV-1 (herpes simplex virus 1) infection Vaginitis Breast implant status 2020, illness PCOS (polycystic ovarian syndrome) Surgical History Surgical History H/O gynecological procedure hscope/D & C/ ablation History of breast augmentation 04/08/17 History of breast surgery 07/02/20, breast implant removal H/O lateral meniscus repair of right knee Status post creation of urethral sling by suprapubic approach Family History Family History Grandparent Breast cancer Social History Social History Smoking status: Never smoker Second hand tobacco smoke exposure: Yes Alcohol intake: current Alcohol use details: 2 BOTTLES OF WINE/MONTH Substance use: never Substance use type: does not use Do You Feel Safe in your Home?: Yes Lack of Transportation: No Lack of Food: Never True Current Housing: I Have Housing Concerned About Future Housing: No Difficulty Paying Gas/Electric Bills: No Difficulty Paying for Meds: No Currently Unemployed: No Education: Bachelor's Degree Difficulty w/ Childcare or Family Care: No Living arrangements: with family Additional living arrangements comments: CHILDREN Occupation/Education: occupation Additional occupation/education comments: RN Gender identity (if verbalized by the patient): Female Sexual Orientation (if Verbalized by the Patient): Lesbian, Shearer, or Homosexual Spiritual care concerns: No Anes - Eval Final PreProcedure Day of Procedure 09/10/24 14:10 Patient weight: normal Heart: regular rate and rhythm Lungs: clear to auscultation Airway: Mallampati scale class II Neurological: alert and oriented Last oral intake: >/= 8 hours ASA classification: II Emergent: no Anesthetic plan: proceed Results Review: All pre-operative results and documents have been reviewed as part of the pre- operative evaluation. Informed Consent: The patient's anesthetic plan and its attendant risks and benefits were discussed with the patient/family/POA. Questions were solicited and answers provided to the satisfaction of the patient/family/POA.
[2024-09-10] MEDS: ceFAZolin 2 GM in SODIUM CHLORIDE 0.9% IV 50 ML 100 ML IVPB (14:15)
--- NOTE | 2024-09-10 14:53 | P.OP_ITS ---
Procedure Note - Detailed Date of Procedure 09/10/24 Pre-op Diagnosis Prolapse Bleeding Int Hemorrhoids Post-op Diagnosis Same Procedure Performed Rubber-band ligation of right anterior internal hemorrhoid Surgeon Julio Peña MD Booster Station Operator whit Fernando Anesthesia General Indications patient has noticed rectal bleeding and intermittent prolapse of internal hemorrhoids. She is taken to surgery now for rubber-band ligation Findings only internal hemorrhoid that was pathologic was the right anterior internal hemorrhoid no other findings noted Description of Procedure patient was taken to surgery and induced into general anesthesia. She was placed in prone travis-knife position. The perianal area was prepped and draped. Digital exam was performed and then using a Omi-Odette anoscope, the anal canal was reviewed. Findings were as above. Her band ligation was carried out on the right anterior internal hemorrhoid. All looked good. The rectum was dressed with Xeroform gauze and fluffs. Patient was returned to a supine position, awakened and taken to recovery in good condition. Estimated Blood Loss 0 Drains No Packing No Pathology None sent Complications None Condition Stable Disposition PACU [facility] Billing Surgery - Charge Forward: Surgery Billing ( Rubber-band ligation internal hemorrhoids)
[2024-09-10] MEDS: fentaNYL CITRATE INJ (*CRX) 100 MCG/2 ML VIAL 25 MCG IV PUSH ×4 (15:19→15:46)
== END 2024-09-10 16:35 | disposition home or self-care (01) ==
PROVIDERS: PCP Internal Medicine; Visit Provider Surgery
PROC: (CPT 46221; principal; 2024-09-10 13:00)
DX: K64.2 Third degree hemorrhoids (principal); E28.2 Polycystic ovarian syndrome; Z79.51 Long term (current) use of inhaled steroids; Z98.890 Other specified postprocedural states; Z80.3 Family history of malignant neoplasm of breast
CPT/HCPCS: 46221; J0690; A9270; J1100; J1885; J2003; J2250; J2405; J2704; J3010; J7120